=== PATIENT | male | born 1965 | race Caucasian/White ===

== ENCOUNTER 2016-10-13 11:40 | Emergency (ER) | payer OTHER ==
[~2016-10-13] VITALS: Ht 165.1 cm; Wt 86.4 kg
[~2016-10-13 11:40] MED LIST: ACET-66 PO
[2016-10-13 12:26] LABS: INFLUENZA TYPE B NEGATIVE FOR TYPE B (NEGATIVE)
[2016-10-13] MEDS ORDERED: OSELTAMIVIR PHOSPHATE 75 MG CAPSULE PO ONE (15:00)
[2016-10-13] MEDS ORDERED: KETOROLAC TROMETHAMINE 60 MG/2 ML VIAL IM ONE (15:00)
[2016-10-13] MEDS ORDERED: ACETAMINOPHEN 500 MG TABLET PO ONE (15:00)
[2016-10-13 16:51] VITALS: BP 136/59
== END 2016-10-13 17:03 | disposition home or self-care (01) ==
LOC: EMS 11:42
DX: J11.1 Influenza due to unidentified influenza virus with other respiratory manifestations (principal); I10 Essential (primary) hypertension; F17.210 Nicotine dependence, cigarettes, uncomplicated
CPT/HCPCS: 71020; 87804; 93005; 96372; 99285; 99406; J1885